=== PATIENT | male | born 1980 | race Caucasian/White ===

== ENCOUNTER 2017-05-31 07:54 | Emergency (ER) | payer OTHER ==
[~2017-05-31] VITALS: Ht 172.7 cm; Wt 77.1 kg
[~2017-05-31 07:54] MED LIST: ATENOLOL25 MG PO; BACTRIM DS TAB1 EACH PO; CHLORDIAZEPO-A1 EACH PO; CLONAZEPAM0.5 MG PO; DICLOFENAC SODI75 MG PO; LORAZEPAM1 MG PO; NEXIUM40 MG PO; TYLENOL # 31 EA PO; ZOLOFT25 MG PO
[2017-05-31] MEDS ORDERED: PANTOPRAZOLE 40 MG 10ML VIAL IV STA (08:40)
[2017-05-31] MEDS ORDERED: SODIUM CHLORIDE 0.9% 1000ML 1,000 ML IV STA (08:40)
[2017-05-31] MEDS ORDERED: LORAZEPAM INJ 2 MG/ML VIAL IV ONE (08:45)
[2017-05-31 08:54] LABS: BASOPHILS % 0.2 % (0.0-1.0); HEMATOCRIT 38.1 % (38.2-49.6); LYMPHOCYTES # (AUTO) 0.8 (1.0-3.2); LYMPHOCYTES % 15.7 % (18.0-39.1); MEAN CORPUSCULAR HEMOGLOBIN 29.6 pg (28-32); MEAN CORPUSCULAR HGB CONC 34.1 g/dL (31-35); MEAN CORPUSCULAR VOLUME 86.8 fL (81-99); MONOCYTES # (AUTO) 0.3 (0.2-0.8); NEUTROPHILS # (AUTO) 4.2 (2.1-6.9); NEUTROPHILS % 77.7 % (38.7-80.0); PLATELET COUNT 233 x10e3/uL (140-360); RED BLOOD COUNT 4.39 x10e6/uL (4.3-5.7); RED CELL DISTRIBUTION WIDTH 12.4 % (11.7-14.4)
[2017-05-31 09:08] LABS: ALANINE AMINOTRANSFERASE 43 IU/L (0-55); ALBUMIN 3.7 g/dL (3.5-5.0); ALKALINE PHOSPHATASE 92 IU/L (40-150); AMYLASE 43 U/L (25-125); ANION GAP 12.6 mmol/L (8-16); BLOOD UREA NITROGEN 11 mg/dL (7-26); BUN/CREATININE RATIO 15 (6-25); CARBON DIOXIDE 22 mmol/L (22-29); CHLORIDE 107 mmol/L (98-107); CREATININE, SERUM 0.74 mg/dL (0.72-1.25); EST GLOMERULAR FILTRATION RATE > 60 ML/MIN (60-); GLUCOSE 110 mg/dL (74-118); LIPASE 20 U/L (8-78); POTASSIUM 3.6 mmol/L (3.5-5.1); SODIUM 138 mmol/L (136-145)
[2017-05-31 11:42] VITALS: BP 127/89
== END 2017-05-31 12:04 | disposition home or self-care (01) ==
LOC: ER 07:54
DX: R10.13 Epigastric pain (principal); R11.2 Nausea with vomiting, unspecified; R19.7 Diarrhea, unspecified; K29.00 Acute gastritis without bleeding; I10 Essential (primary) hypertension; F41.9 Anxiety disorder, unspecified
CPT/HCPCS: 36415; 80053; 82150; 83690; 85025; 99283; J2060; J7030

== ENCOUNTER 2017-10-05 09:20 | Emergency (ER) | payer OTHER ==
[~2017-10-05] VITALS: Ht 172.7 cm; Wt 77.1 kg
[2017-10-05] MEDS ORDERED: PROMETHAZINE HCL (IM) 25 MG/ML VIAL IM ONE (10:15)
[2017-10-05] MEDS ORDERED: MORPHINE SULFATE 2 MG/ML SYR IV STA (11:25)
[2017-10-05] MEDS ORDERED: ONDANSETRON HCL INJ 2 MG/ML VIAL IV STA (11:25)
[2017-10-05 12:49] VITALS: BP 132/68
== END 2017-10-05 12:52 | disposition home or self-care (01) ==
LOC: FSED 09:20
CPT/HCPCS: 36415; 80053; 80307; 82553; 82948; 84484; 85025; 93005; 96372; 96374; 99284; J2270; J2405; J2550

== ENCOUNTER 2017-10-07 09:02 | Emergency (ER) | payer OTHER ==
[~2017-10-07] VITALS: Ht 172.7 cm; Wt 77.1 kg
--- OUTSIDE RECORDS SUMMARY | 2017-10-07 09:06 | XMS REPORT | Continuity of Care Document ---
Author Author [facility] Organization [facility] Address [address] [place] [address] Phone Unavailable Care Team Providers Care Combine Inspector Name Role Phone NONSTAFF PCP Unavailable Insurance Providers Guarantor Marshall Polo Address [address] [place] [address] Email NONE Payer [employer] Policy Number [id number] Subscriber's Name Shashank Poloette Relationship 01 Group Number [id number] Group Name [employer] Effective Date 11 Advance Directives Directive Response Recorded Date/Time Does the patient have an advance directive? No 01/04/14 6:36am If yes, is advance directive on file with [facility]? No 01/04/14 6:36am If not on file with [facility] will patient provide a copy? No 05/31/17 8:09am Do you have a Directive to Physician? No 10/05/17 10:27am Do you have a Medical Power of Telephone Instrument Supervisor? No 10/05/17 10:27am Do you have an out of hospital Do Not Resuscitate Order? No 10/05/17 10:27am Do you have any special needs we should be aware of? No 10/05/17 10:27am Do you have a support person here with you today? Yes 10/05/17 10:27am Did patient receive Notice of Privacy Practices? Yes 10/05/17 10:27am Did patient receive patient rights and responsibilities? Yes 10/05/17 10:27am Problems No problem information available. Medications Current Home Medications Medication Dose Units Route Directions Days Qty Instructions Start Date Acetaminophen/Codeine Phosphate (Tylenol # 3*) 1 Ea Tab 1 Tab Oral Every 6 Hours as needed for Pain Esomeprazole Magnesium (Nexium) 40 Mg Capsule.dr 40 Mg Oral Daily PROTONIX THERAPEUTIC SUBSTITUTE FOR NEXIUM PER [facility] Past Home Medications Medication Directions Ordered Status Amitrip Hcl/Chlordiazepoxide (Chlordiazepo-Amitriptyl 5-12.5) 1 Each Tablet, 1- 2 Tab Oral Bedtime Discontinued Atenolol 25 Mg Tablet, 25 Mg Oral Daily Discontinued Clonazepam 0.5 Mg Tablet, 0.5 Mg Oral Discontinued Diclofenac Sodium 75 Mg Tablet.dr, 75 Mg Oral Bidprn Discontinued Lorazepam 1 Mg Tablet, 1 Mg Oral Twice A Day as needed for Anxiety Discontinued Sertraline Hcl (Zoloft) 25 Mg Tablet, 25 Mg Oral Discontinued Sulfamethoxazole/Trimethoprim (Bactrim Ds Tablet) 1 Each Tablet, 800 Mg Oral Twice A Day Discontinued Social History Social History Problem Response Recorded Date/Time Onset Date Status Hx Psychiatric Problems No 01/04/2014 6:36am Not Applicable Not Applicable Hx Substance Use Disorder No 01/04/2014 6:36am Not Applicable Not Applicable Hx Depression No 01/04/2014 6:36am Not Applicable Not Applicable Hx Alcohol Use Occassionally 01/04/2014 6:36am Not Applicable Not Applicable Hx Substance Use Treatment No 01/04/2014 6:36am Not Applicable Not Applicable Hx Physical Abuse No 01/04/2014 6:36am Not Applicable Not Applicable Smoking Status Start Date Stop Date Former smoker Hospital Discharge Instructions No hospital discharge instruction information available. Plan of Care Discharge Date 10/05/17 12:52pm Disposition HOME, SELF-CARE Condition at Discharge Stable Instructions/Education Provided Hyperglycemia Marijuana Abuse Vomiting - Adult Prescriptions See Medication Section Referrals [facility] Additional Instructions/Education Return to the closest emergency room if symptoms worsen. Take medication as prescribed. Fill your prescription immediately after leaving the ER. It is okay to alternate your zofran ODT and phenergan. Do not drive or operate any heavy machinery while taking your nausea/vomiting medicine. Drink plenty of fluids. Follow up with your doctor tomorrow. Functional Status No functional status information available. Allergies, Adverse Reactions, Alerts No known allergies. Immunizations No immunization information available. Vital Signs Acute Vital Signs Vital Response Date/Time Temperature (Fahrenheit) 98.1 degrees F (97.6 - 99.5) 10/05/2017 12:49pm Pulse Pulse Rate (adult) 68 bpm (60 - 90) 10/05/2017 12:49pm Respiratory Rate 18 bpm (12 - 24) 10/05/2017 12:49pm Blood Pressure 132/68 mm Hg 10/05/2017 12:49pm Height 5 ft 8 in 10/05/2017 9:25am Weight 170 lb 10/05/2017 9:25am Body Mass Index 25.8 kg/m^2 10/05/2017 9:25am Results Laboratory Results Test Name Result Units Flags Reference Collection Date/Time Result Date/ Time Comments White Blood Count 5.34 x10e3/uL 4.8-10.8 05/31/2017 8:25am 05/31/2017 9 :01am Red Blood Count 4.39 x10e6/uL 4.3-5.7 05/31/2017 8:25am 05/31/2017 9: 01am Hemoglobin 13.0 g/dL L 14.0-18.0 05/31/2017 8:25am 05/31/2017 9:01am Hematocrit 38.1 % L 38.2-49.6 05/31/2017 8:25am 05/31/2017 9:01am Mean Corpuscular Volume 86.8 fL 81-99 05/31/2017 8:25am 05/31/2017 9: 01am Mean Corpuscular Hemoglobin 29.6 pg 28-32 05/31/2017 8:2505/31/2017 9:01am Mean Corpuscular Hemoglobin Concent 34.1 g/dL 31-35 05/31/2017 8:25am 05/31/2017 9:01am Red Cell Distribution Width 12.4 % 11.7-14.4 05/31/2017 8:25am 2016 9:01am Platelet Count 233 x10e3/uL 140-360 05/31/2017 8:25am 05/31/2017 9: 01am Neutrophils (%) (Auto) 77.7 % 38.7-80.0 05/31/2017 8:25am 05/31/2017 9: 01am Lymphocytes (%) (Auto) 15.7 % L 18.0-39.1 05/31/2017 8:05/31/2017 9 :01am Monocytes (%) (Auto) 6.0 % 4.4-11.3 05/31/2017 8:05/31/2017 9: 01am Eosinophils (%) (Auto) 0.0 % 0.0-6.0 05/31/2017 8:05/31/2017 9: 01am Basophils (%) (Auto) 0.2 % 0.0-1.0 05/31/2017 8:05/31/2017 9:01am IM GRANULOCYTES % 0.4 % 0.0-1.0 05/31/2017 8:05/31/2017 9:01am Neutrophils # (Auto) 4.2 2.1-6.9 05/31/2017 8:05/31/2017 9:01am Lymphocytes # (Auto) 0.8 L 1.0-3.2 05/31/2017 8:05/31/2017 9: 01am Monocytes # (Auto) 0.3 0.2-0.8 05/31/2017 8:05/31/2017 9:01am Eosinophils # (Auto) 0.0 0.0-0.4 05/31/2017 8:05/31/2017 9:01am Basophils # (Auto) 0.0 0.0-0.1 05/31/2017 8:05/31/2017 9:01am Absolute Immature Granulocyte (auto 0.02 x10e3/uL 0-0.1 05/31/2017 8: 05/31/2017 9:01am Sodium Level 138 mmol/L 136-145 05/31/2017 8:05/31/2017 9:08am Potassium Level 3.6 mmol/L 3.5-5.1 05/31/2017 8:05/31/2017 9:08am Chloride Level 107 mmol/L 98-107 05/31/2017 8:05/31/2017 9:08am Carbon Dioxide Level 22 mmol/L 22-29 05/31/2017 8:05/31/2017 9: 08am Anion Gap 12.6 mmol/L 8-16 05/31/2017 8:05/31/2017 9:08am Blood Urea Nitrogen 11 mg/dL 7-26 05/31/2017 8:05/31/2017 9:08am Creatinine 0.74 mg/dL 0.72-1.25 05/31/2017 8:05/31/2017 9:08am BUN/Creatinine Ratio 15 6-25 05/31/2017 8:05/31/2017 9:08am Estimat Glomerular Filtration Rate > 60 ML/MIN 60- 05/31/2017 8: 9:08am Ranges were taken from the National Kidney Disease Education Program and the National [employer] literature. Reference ranges: 60 or greater: Normal 16-59 (for 3 consecutive months): Chronic kidney disease 15 or less: Kidney failure Glucose Level 110 mg/dL 74-118 05/31/2017 8:05/31/2017 9:08am Calcium Level 9.0 mg/dL 8.4-10.2 05/31/2017 8:05/31/2017 9:08am Total Bilirubin 0.4 mg/dL 0.2-1.2 05/31/2017 8:05/31/2017 9:08am Aspartate Amino Transf (AST/SGOT) 36 IU/L H 5-34 05/31/2017 8:05/31 9:08am Alanine Aminotransferase (ALT/SGPT) 43 IU/L 0-55 05/31/2017 8: 9:08am Total Protein 7.5 g/dL 6.5-8.1 05/31/2017 8:05/31/2017 9:08am Albumin 3.7 g/dL 3.5-5.0 05/31/2017 8:05/31/2017 9:08am Globulin 3.8 g/dL H 2.3-3.5 05/31/2017 8:05/31/2017 9:08am Albumin/Globulin Ratio 1.0 0.8-2.0 05/31/2017 8:05/31/2017 9: 08am Alkaline Phosphatase 92 IU/L 40-150 05/31/2017 8:05/31/2017 9: 08am Amylase Level 43 U/L 25-125 05/31/2017 8:05/31/2017 9:08am Lipase 20 U/L 8-78 05/31/2017 8:25am 05/31/2017 9:08am Procedures No procedure information available. Encounters Encounter Location Arrival/Admit Date Discharge/Depart Date Attending Provider Departed Emergency Room [facility] 10/05/17 9:20am 12:52pm DI TALLEY MD Departed Emergency Room [facility] 05/31/17 7:54am 12:04pm SANDIE ZURITA MD
[2017-10-07] MEDS ORDERED: SODIUM CHLORIDE 0.9% 1000ML 1,000 ML IV STA (09:20)
[2017-10-07] MEDS ORDERED: ASPIRIN 81 MG CHEW TAB PO ONE (09:30)
[2017-10-07] MEDS ORDERED: LORAZEPAM INJ 2 MG/ML VIAL IV ONE (09:30)
[2017-10-07] MEDS ORDERED: PANTOPRAZOLE 40 MG 10ML VIAL ONE (09:33)
[2017-10-07 09:43] LABS: BASOPHILS % 0.3 % (0.0-1.0); EOSINOPHILS % 0.1 % (0.0-6.0); HEMATOCRIT 43.2 % (38.2-49.6); HEMOGLOBIN 14.8 g/dL (14.0-18.0); LYMPHOCYTES % 27.1 % (18.0-39.1); MEAN CORPUSCULAR HEMOGLOBIN 29.1 pg (28-32); MEAN CORPUSCULAR HGB CONC 34.3 g/dL (31-35); MEAN CORPUSCULAR VOLUME 84.9 fL (81-99); MONOCYTES # (AUTO) 0.5 (0.2-0.8); NEUTROPHILS % 66.2 % (38.7-80.0); PLATELET COUNT 270 x10e3/uL (140-360); RED BLOOD COUNT 5.09 x10e6/uL (4.3-5.7); RED CELL DISTRIBUTION WIDTH 12.7 % (11.7-14.4)
[2017-10-07 10:03] LABS: ALANINE AMINOTRANSFERASE 40 IU/L (0-55); ALBUMIN 4.4 g/dL (3.5-5.0); ALKALINE PHOSPHATASE 114 IU/L (40-150); ANION GAP 16.5 mmol/L (8-16); BLOOD UREA NITROGEN 16 mg/dL (7-26); BUN/CREATININE RATIO 19 (6-25); CARBON DIOXIDE 23 mmol/L (22-29); CHLORIDE 105 mmol/L (98-107); CREATINE KINASE 41 IU/L (30-200); CREATININE, SERUM 0.83 mg/dL (0.72-1.25); EST GLOMERULAR FILTRATION RATE > 60 ML/MIN (60-); GLUCOSE 109 mg/dL (74-118); POTASSIUM 3.5 mmol/L (3.5-5.1); SODIUM 141 mmol/L (136-145)
[2017-10-07] MEDS ORDERED: MORPHINE SULFATE 4 MG/ML SYR IV STA (10:05)
[2017-10-07] MEDS ORDERED: ONDANSETRON HCL 4 MG ORAL DISINTEGRATING TAB PO ONE (10:15)
[2017-10-07] MEDS ORDERED: MORPHINE SULFATE 2 MG/ML SYR ONE (10:19)
--- NOTE | 2017-10-07 10:20 | Diagnostic Imaging Report ---
EXAMINATION: CHEST SINGLE (PORTABLE) INDICATION: Anxiety, ingestion of PCP drug \S\ERMD ORDER \S\[id number] \S\1005 \S\Y COMPARISON: Chest radiograph 07/19/2014 FINDINGS: AP view TUBES and LINES: None. LUNGS: Lungs are well inflated. Lungs are clear. There is no evidence of pneumonia or pulmonary edema. PLEURA: No pleural effusion or pneumothorax. HEART AND MEDIASTINUM: The cardiomediastinal silhouette is unremarkable.. BONES AND SOFT TISSUES: No acute osseous lesion. Soft tissues are unremarkable. UPPER ABDOMEN: No free air under the diaphragm. IMPRESSION: No acute thoracic abnormality. Signed by: Dr. Rossy Garnica M.D. on 10/07/2017 10:16 AM
[2017-10-08] MEDS ORDERED: PANTOPRAZOLE 40 MG 10ML VIAL IV SCH (09:00)
[2017-10-08] MEDS ORDERED: PANTOPRAZOLE 40 MG 10ML VIAL IV ONE (10:00)
== END 2017-10-07 11:40 | disposition home or self-care (01) ==
LOC: ER 09:02
DX: R07.89 Other chest pain (principal); F19.180 Other psychoactive substance abuse with psychoactive substance-induced anxiety disorder; F16.10 Hallucinogen abuse, uncomplicated
CPT/HCPCS: 36415; 71045; 80053; 82550; 82553; 83880; 84484; 85025; 93005; 99284; J2060; J2270; J7030

== ENCOUNTER 2020-08-17 21:00 | Emergency (ER) | payer OTHER ==
[~2020-08-17] VITALS: Ht 172.7 cm; Wt 77.1 kg
[2020-08-17] MEDS ORDERED: HALOPERIDOL LACTATE 5 MG/ML VIAL IM ONE (22:00)
[2020-08-17] MEDS ORDERED: HALOPERIDOL LACTATE 5 MG/ML VIAL ONE (22:08)
[2020-08-17] MEDS ORDERED: HALDOL1 MG PO (22:08)
[2020-08-17 22:56] VITALS: BP 132/76
== END 2020-08-17 22:57 | disposition home or self-care (01) ==
LOC: ER 21:58
DX: R11.2 Nausea with vomiting, unspecified (principal); R10.13 Epigastric pain; F12.20 Cannabis dependence, uncomplicated; F41.9 Anxiety disorder, unspecified
CPT/HCPCS: 99282; J1630

== ENCOUNTER 2020-10-08 10:08 | Emergency (ER) | payer OTHER ==
[~2020-10-08] VITALS: Ht 172.7 cm; Wt 77.1 kg
[~2020-10-08 10:08] MED LIST changes: +HALDOL1 MG PO
[2020-10-08] MEDS ORDERED: PANTOPRAZOLE 40 MG 10ML VIAL IV STA (10:23)
[2020-10-08] MEDS ORDERED: HALOPERIDOL LACTATE 5 MG/ML VIAL IM ONE (10:30)
[2020-10-08 10:31] LABS: BASOPHILS % 0.2 % (0.0-1.0); HEMATOCRIT 40.2 % (38.2-49.6); LYMPHOCYTES # (AUTO) 0.9 (1.0-3.2); MEAN CORPUSCULAR HEMOGLOBIN 29.5 pg (28-32); MEAN CORPUSCULAR HGB CONC 32.3 g/dL (31-35); MEAN CORPUSCULAR VOLUME 91.2 fL (81-99); MONOCYTES # (AUTO) 0.2 (0.2-0.8); MONOCYTES % 2.6 % (4.4-11.3); NEUTROPHILS # (AUTO) 7.6 (2.1-6.9); NEUTROPHILS % 86.9 % (38.7-80.0); PLATELET COUNT 253 x10e3/uL (140-360); RED BLOOD COUNT 4.41 x10e6/uL (4.3-5.7); RED CELL DISTRIBUTION WIDTH 12.7 % (11.7-14.4)
[2020-10-08 10:50] LABS: ALANINE AMINOTRANSFERASE 20 IU/L (0-55); ALBUMIN 4.4 g/dL (3.5-5.0); ALBUMIN/GLOBULIN RATIO 1.2 (0.8-2.0); ALKALINE PHOSPHATASE 104 IU/L (40-150); ANION GAP 13.8 mmol/L (8-16); CALCIUM 9.8 mg/dL (8.4-10.2); CARBON DIOXIDE 25 mmol/L (22-29); CHLORIDE 107 mmol/L (98-107); GLUCOSE 134 mg/dL (74-118); POTASSIUM 3.8 mmol/L (3.5-5.1); SODIUM 142 mmol/L (136-145)
[2020-10-08 11:12] LABS: BLOOD UREA NITROGEN 13 mg/dL (7-26); BUN/CREATININE RATIO 18 (6-25); CREATININE, SERUM 0.74 mg/dL (0.72-1.25); EST GLOMERULAR FILTRATION RATE > 60 ML/MIN (60-)
[2020-10-08] MEDS ORDERED: DONNATAL/LIDOCAINE/MAALOX 30 ML SUSP PO STA (11:20)
[2020-10-08] MEDS ORDERED: KETOROLAC TROMETHAMINE 30 MG/ML VIAL IV STA (11:20)
[2020-10-08] MEDS ORDERED: FENTANYL CITRATE/PF 100MCG/2 ML INJ IV ONE (11:30)
[2020-10-08 13:41] VITALS: BP 132/82
[2020-10-08] MEDS ORDERED: SODIUM CHLORIDE 0.9% 50ML 50 ML ONE (14:09)
[2020-10-08] MEDS ORDERED: IOPAMIDOL 370 MG/ML 200 ML INFUS..BTL INJ ONE (14:10)
== END 2020-10-08 13:44 | disposition home or self-care (01) ==
LOC: ER 10:38
DX: R11.2 Nausea with vomiting, unspecified (principal); R10.9 Unspecified abdominal pain; F12.90 Cannabis use, unspecified, uncomplicated; F41.9 Anxiety disorder, unspecified; F17.210 Nicotine dependence, cigarettes, uncomplicated
CPT/HCPCS: 36415; 74177; 80053; 83690; 85025; 99284; C9113; J1630; J1885; J3010; Q9967

== ENCOUNTER 2022-04-20 11:40 | Emergency (ER) | payer OTHER ==
[~2022-04-20] VITALS: Ht 172.7 cm; Wt 77.1 kg
[2022-04-20] MEDS ORDERED: AMOXICILLIN/CLAVULANATE K 875 MG TAB PO STA (12:05)
[2022-04-20] MEDS ORDERED: CLINDAMYCIN HCL 150 MG CAP PO ONE (12:15)
[2022-04-20] MEDS ORDERED: Morphine 4mg INJECTION 4 MG/ML INJ IM ONE (12:15)
[2022-04-20] MEDS ORDERED: AMOX TR-K CLV1 EAC2 PO (12:44)
[2022-04-20] MEDS ORDERED: CLINDAMYCIN HC150 MG PO (12:44)
== END 2022-04-20 13:44 | disposition home or self-care (01) ==
LOC: ER 11:49
DX: K61.1 Rectal abscess (principal); F41.9 Anxiety disorder, unspecified; F17.210 Nicotine dependence, cigarettes, uncomplicated
CPT/HCPCS: 87071; 87205; 99282; J2270

== ENCOUNTER 2024-08-04 19:27 | Emergency (ER) | payer OTHER ==
[~2024-08-04] VITALS: Ht 172.7 cm; Wt 88.5 kg
[~2024-08-04 19:27] MED LIST changes: +AMOX TR-K CLV1 EAC2 PO; +CLINDAMYCIN HC150 MG PO
[2024-08-04] MEDS ORDERED: TYLENOL325 MG PO (20:08)
[2024-08-04] MEDS ORDERED: GABAPENTIN300 MG PO (20:08)
[2024-08-04] MEDS ORDERED: VALTREX1000 MG PO (20:08)
[2024-08-04 20:24] VITALS: PULSE 90; RESP 18; TEMP 98.5
[2024-08-04 20:25] VITALS: BP 151/81; PULSE 90; RESP 18; TEMP 98.5; O2SAT 98
== END 2024-08-04 20:27 | disposition home or self-care (01) ==
LOC: FSED 19:33
DX: B02.29 Other postherpetic nervous system involvement (principal); I10 Essential (primary) hypertension; F41.9 Anxiety disorder, unspecified
CPT/HCPCS: 99283

== ENCOUNTER 2024-11-27 20:46 | Inpatient (IN) | payer OTHER ==
[~2024-11-27] VITALS: Ht 172.7 cm; Wt 89.4 kg
[~2024-11-27 20:46] MED LIST changes: +GABAPENTIN300 MG PO; +TYLENOL325 MG PO; +VALTREX1000 MG PO
[2024-11-27 20:50] VITALS: PULSE 79; RESP 16; TEMP 98.1
[2024-11-27] MEDS ORDERED: PROCHLORPERAZINE EDISYLATE 5 MG/ML VIAL IV ONE (21:15)
[2024-11-27] MEDS: KETOROLAC TROMETHAMINE 30 MG/ML VIAL IV STA (21:19)
[2024-11-27] MEDS: ONDANSETRON HCL INJ 2MG/ML 2ML 2 MG/ML VIAL IV STA (21:19)
[2024-11-27] MEDS: Morphine 4mg INJECTION 4 MG/ML INJ IV ONE ×2 (21:42→23:22)
[2024-11-27] MEDS ORDERED: Morphine 2mg Syringe 2 MG/ML SYR IV PRN (23:15)
[2024-11-27] MEDS: SODIUM CHLORIDE 0.9% 1000ML 1,000 ML IV SCH (23:18)
[2024-11-27] MEDS: CEFTRIAXONE 1 GM VIAL IV ONE (23:18)
[2024-11-27] MEDS: DICYCLOMINE HCL 20 MG/2 ML VIAL IM ONE (23:19)
[2024-11-27] MEDS: FAMOTIDINE 20 MG/2 ML VIAL IV STA (23:19)
[2024-11-27] MEDS: METOCLOPRAMIDE HCL 10 MG/2ML VIAL IV ONE (23:22)
[2024-11-28] VITALS (7 sets, daily range): BP systolic 116–168; BP diastolic 70–86; PULSE 56–63; RESP 19–20; TEMP 97.5–97.9; O2SAT 98–100
[2024-11-28] MEDS: ONDANSETRON HCL INJ 2MG/ML 2ML 2 MG/ML VIAL IV PRN ×2 (00:31→08:20)
[2024-11-28] MEDS ORDERED: ACETAMINOPHEN 325 MG TAB PO PRN (01:30)
[2024-11-28] MEDS ORDERED: DICYCLOMINE HCL 10 MG CAP PO PRN (01:30)
[2024-11-28] MEDS ORDERED: METOCLOPRAMIDE HCL 10 MG/2ML VIAL IV SCH (02:00)
[2024-11-28] MEDS: KETOROLAC TROMETHAMINE 30 MG/ML VIAL IV PRN (02:05)
[2024-11-28] MEDS: Morphine 4mg INJECTION 4 MG/ML INJ IV PRN (02:56)
[2024-11-28] MEDS: METOCLOPRAMIDE HCL 10 MG/2ML VIAL IV SCH (05:22)
[2024-11-28 05:38] LABS: BASOPHILS % 0.2 % (0.0-1.0); HEMATOCRIT 38.7 % (38.2-49.6); HEMOGLOBIN 12.6 g/dL (14.0-18.0); MEAN CORPUSCULAR HGB CONC 32.6 g/dL (31-35); MEAN CORPUSCULAR VOLUME 92.1 fL (81-99); MONOCYTES # (AUTO) 0.4 (0.2-0.8); MONOCYTES % 3.7 % (4.4-11.3); NEUTROPHILS # (AUTO) 8.8 (2.1-6.9); NEUTROPHILS % 85.8 % (38.7-80.0); PLATELET COUNT 255 x10e3/uL (140-360); RED CELL DISTRIBUTION WIDTH 13.2 % (11.7-14.4); WHITE BLOOD COUNT 10.28 x10e3/uL (4.8-10.8)
[2024-11-28 05:58] LABS: ANION GAP 15.6 mmol/L (8-16); CALCIUM 9.3 mg/dL (8.4-10.2); CREATININE, SERUM 0.95 mg/dL (0.72-1.25); INR 0.92; POTASSIUM 4.6 mmol/L (3.5-5.1); PROTHROMBIN TIME 13.2 seconds (11.9-14.5)
[2024-11-28 05:59] LABS: PARTIAL THROMBOPLASTIN TIME 28.2 seconds (23.8-35.5)
[2024-11-28] MEDS: SUCRALFATE 1 GM TAB PO SCH (11:37)
[2024-11-29] VITALS (7 sets, daily range): BP systolic 128–170; BP diastolic 74–87; PULSE 58–85; RESP 18–20; TEMP 97.8–98.3; O2SAT 99–100
[2024-11-29 05:37] LABS: BASOPHILS % 0.2 % (0.0-1.0); EOSINOPHILS # (AUTO) 0.1 (0.0-0.4); EOSINOPHILS % 0.8 % (0.0-6.0); HEMATOCRIT 39.1 % (38.2-49.6); HEMOGLOBIN 12.6 g/dL (14.0-18.0); LYMPHOCYTES # (AUTO) 2.8 (1.0-3.2); LYMPHOCYTES % 31.2 % (18.0-39.1); MEAN CORPUSCULAR HEMOGLOBIN 29.9 pg (28-32); MEAN CORPUSCULAR HGB CONC 32.2 g/dL (31-35); MEAN CORPUSCULAR VOLUME 92.9 fL (81-99); MONOCYTES # (AUTO) 0.8 (0.2-0.8); MONOCYTES % 8.7 % (4.4-11.3); NEUTROPHILS # (AUTO) 5.2 (2.1-6.9); NEUTROPHILS % 58.7 % (38.7-80.0); PLATELET COUNT 245 x10e3/uL (140-360); RED BLOOD COUNT 4.21 x10e6/uL (4.3-5.7); RED CELL DISTRIBUTION WIDTH 13.2 % (11.7-14.4); WHITE BLOOD COUNT 8.94 x10e3/uL (4.8-10.8)
[2024-11-29 05:51] LABS: ANION GAP 13.6 mmol/L (8-16); CALCIUM 8.9 mg/dL (8.4-10.2); CREATININE, SERUM 0.99 mg/dL (0.72-1.25); POTASSIUM 3.6 mmol/L (3.5-5.1)
[2024-11-29] MEDS: ENOXAPARIN SOD INJ 40 MG/0.4 ML SYR SC SCH (16:20)
[2024-11-29] MEDS: TAMSULOSIN HCL 0.4 MG CAP PO SCH (20:20)
[2024-11-30 03:18] VITALS: BP 129/58; PULSE 83; RESP 18; TEMP 97.8; O2SAT 100
[2024-11-30 05:50] LABS: BASOPHILS % 0.6 % (0.0-1.0); EOSINOPHILS # (AUTO) 0.2 (0.0-0.4); EOSINOPHILS % 2.2 % (0.0-6.0); HEMATOCRIT 34.2 % (38.2-49.6); HEMOGLOBIN 11.1 g/dL (14.0-18.0); LYMPHOCYTES # (AUTO) 3.3 (1.0-3.2); LYMPHOCYTES % 48.5 % (18.0-39.1); MEAN CORPUSCULAR HEMOGLOBIN 29.8 pg (28-32); MEAN CORPUSCULAR HGB CONC 32.5 g/dL (31-35); MEAN CORPUSCULAR VOLUME 91.7 fL (81-99); MONOCYTES # (AUTO) 0.6 (0.2-0.8); NEUTROPHILS # (AUTO) 2.7 (2.1-6.9); NEUTROPHILS % 39.6 % (38.7-80.0); PLATELET COUNT 240 x10e3/uL (140-360); RED BLOOD COUNT 3.73 x10e6/uL (4.3-5.7); WHITE BLOOD COUNT 6.86 x10e3/uL (4.8-10.8)
[2024-11-30 06:02] LABS: CALCIUM 8.7 mg/dL (8.4-10.2); CREATININE, SERUM 0.76 mg/dL (0.72-1.25)
[2024-11-30 08:00] VITALS: BP 121/74; PULSE 54; RESP 18; TEMP 97; TEMP 97.9; O2SAT 100
[2024-11-30 12:00] VITALS: BP 142/90; PULSE 56; RESP 18; TEMP 98; O2SAT 100
== END 2024-11-30 14:45 | disposition home or self-care (01) | DRG 694 ==
LOC: FSED 20:50 → ERHOLD 23:05 → MED/SURG 11-28 00:58
PROVIDERS: ADMIT Internal Medicine; ATTEND Internal Medicine
DX: N13.2 Hydronephrosis with renal and ureteral calculous obstruction (principal); I10 Essential (primary) hypertension; N23 Unspecified renal colic; E86.0 Dehydration; R31.0 Gross hematuria; K29.70 Gastritis, unspecified, without bleeding; E66.9 Obesity, unspecified; Z68.30 Body mass index [BMI] 30.0-30.9, adult; Z90.49 Acquired absence of other specified parts of digestive tract
CPT/HCPCS: 36415; 74018; 74176; 80048; 80053; 81003; 85025; 85610; 85730; 99284; J0692; J0696; J1308; J1650; J1885; J2270; J2405; J2470; J2765; J7030

== ENCOUNTER 2025-01-01 18:17 | Emergency (ER) | payer OTHER ==
[~2025-01-01] VITALS: Ht 172.7 cm; Wt 85.7 kg
[2025-01-01] MEDS ORDERED: ONDANSETRON ODT4 MG PO (18:49)
[2025-01-01] MEDS ORDERED: IOPAMIDOL 370 MG/ML 100 ML INFUS..BTL INJ ONE (19:24)
[2025-01-01] MEDS ORDERED: FLOMAX0.4 MG PO (19:28)
[2025-01-01] MEDS ORDERED: PYRIDIUM100 MG PO (19:28)
[2025-01-01] MEDS: KETOROLAC TROMETHAMINE 30 MG/ML VIAL IV STA (19:48)
[2025-01-01 20:00] VITALS: PULSE 78; RESP 18; TEMP 98.2
[2025-01-01 20:25] VITALS: BP 138/88; PULSE 78; RESP 18; TEMP 98.2; O2SAT 98
== END 2025-01-01 20:00 | disposition home or self-care (01) ==
LOC: FSED 18:24
DX: R31.9 Hematuria, unspecified (principal); N13.2 Hydronephrosis with renal and ureteral calculous obstruction; I10 Essential (primary) hypertension; K21.9 Gastro-esophageal reflux disease without esophagitis
CPT/HCPCS: 74177; 80053; 81003; 85025; 99284; J1885; Q9967